=== PATIENT | female | born 1965 | race Caucasian/White ===

== ENCOUNTER 2017-04-25 17:12 | Emergency (ER) | payer MEDICAID, OTHER ==
[~2017-04-25] VITALS: Ht 170.2 cm; Wt 98.5 kg
[2017-04-25 17:50] VITALS: BP 135/63; PULSE 77; RESP 20; TEMP 97.3; O2SAT 97
[2017-04-25] MEDS ORDERED: LISI-515 PO (17:55)
[2017-04-25] MEDS ORDERED: hiv meds (17:55)
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
== END 2017-04-25 18:34 ==
LOC: NEPD 17:12
DX: S00.93XA Contusion of unspecified part of head, initial encounter (principal); V53.6XXA Passenger in pick-up truck or van injured in collision with car, pick-up truck or van in traffic accident, initial encounter; Y92.414 Local residential or business street as the place of occurrence of the external cause; I10 Essential (primary) hypertension; E78.00 Pure hypercholesterolemia, unspecified; I50.9 Heart failure, unspecified
CPT/HCPCS: 99282